=== PATIENT | male | born 1930 | race Caucasian/White ===

== ENCOUNTER → 2017-01-04 | Outpatient (CLI) | payer MEDICARE, OTHER ==
[~2017-01-04] VITALS: Ht 165.1 cm; Wt 86.0 kg
[~2017-01-04] MED LIST: ALLO100T30 PO; AMLO5TAB2 PO; ASPI-496 PO; CHOL2000 PO; EZET10TA3 PO; FENTANYL PF 100 MCG/2ML ONE; FLUMAZENIL 0.1 MG/1 ML, 5ML ONE; FURO40TA6 PO; LABE200T3 PO; MIDAZOLAM 1 MG/ML, 5ML ONE; NALOXONE 1 MG/ML, 2ML ONE; PRED-402 PO; ROSU20TA PO; SODIUM CHLORIDE 0.9% 1,000 ML IV SCH; TERA5CAP3 PO
[2017-01-04 06:58] VITALS: BP 151/67
== END | disposition home or self-care (01) ==
LOC: OUT 06:10 → EDSTATUS 07:30
PROVIDERS: ATTEND Surgery
DX: Z01.812 Encounter for preprocedural laboratory examination (principal); N17.9 Acute kidney failure, unspecified; R80.3 Bence Jones proteinuria; M10.9 Gout, unspecified; I12.9 Hypertensive chronic kidney disease with stage 1 through stage 4 chronic kidney disease, or unspecified chronic kidney disease; E78.5 Hyperlipidemia, unspecified; N18.3 Chronic kidney disease, stage 3 (moderate)
CPT/HCPCS: 36415; 85610; J2250; J3010; J2310; J7030

== ENCOUNTER → 2017-01-19 | Outpatient (CLI) | payer MEDICARE, OTHER ==
[~2017-01-19] MED LIST changes: +AMOX1TAB12 PO; -FENTANYL PF 100 MCG/2ML ONE; -FLUMAZENIL 0.1 MG/1 ML, 5ML ONE; +FURO-92 PO; +GUAI5SYR PO; -MIDAZOLAM 1 MG/ML, 5ML ONE; -NALOXONE 1 MG/ML, 2ML ONE; +PRED20TA PO; -SODIUM CHLORIDE 0.9% 1,000 ML IV SCH; +TAMS-11 PO
== END | disposition home or self-care (01) ==
LOC: CFH 10:32
PROVIDERS: ATTEND Surgery
DX: D35.01 Benign neoplasm of right adrenal gland (principal); J84.10 Pulmonary fibrosis, unspecified; N28.89 Other specified disorders of kidney and ureter
CPT/HCPCS: 74150

== ENCOUNTER 2017-02-02 10:35 | Inpatient (IN) | payer MEDICARE, OTHER ==
[~2017-02-02] VITALS: Ht 165.1 cm; Wt 72.3 kg
[2017-02-02] MEDS ORDERED: SODIUM CHLORIDE 0.9% 1,000ML IVBOLUS ONE (11:30)
[2017-02-02] MEDS ORDERED: ACETAMINOPHEN 500 MG TABLET ONE (11:53)
[2017-02-02 12:00] LABS: HEMOGLOBIN 10.9 g/dL (13.7-18.0)
[2017-02-02] MEDS ORDERED: ACETAMINOPHEN 500 MG TABLET PO ONE (12:00)
[2017-02-02] MEDS ORDERED: PIPERACILLIN/TAZO/PMX 3.375GM 50 ML ONE (12:07)
[2017-02-02 12:12] LABS: ASPARTATE AMINO TRANSFERASE 41 U/L (15-37); BLOOD UREA NITROGEN 58 mg/dL (7-18)
[2017-02-02] MEDS ORDERED: PIPERACILLIN/TAZO/PMX 3.375GM 50 ML IV ONE (12:30)
[2017-02-02] MEDS ORDERED: PIPERACILLIN/TAZO/PMX 3.375GM 50 ML IV SCH (14:00)
[2017-02-02] MEDS ORDERED: POLYETHYLENE GLYCOL 17 GM PACKET PO PRN (14:30)
[2017-02-02] MEDS ORDERED: DOCUSATE 100 MG CAPSULE PO PRN (14:30)
[2017-02-02] MEDS ORDERED: ONDANSETRON ODT 4 MG PO PRN (14:30)
[2017-02-02] MEDS ORDERED: GUAIFENESIN/DM 200-20MG, 10ML UDC PO PRN (14:30)
[2017-02-02] MEDS ORDERED: BISACODYL 10 MG SUPP PR PRN (14:30)
[2017-02-02] MEDS ORDERED: PHARMACY MAY ADJ FOR RENAL FX MC PRN (14:30)
[2017-02-02] MEDS ORDERED: ONDANSETRON 2MG/ML, 2ML IVP PRN (14:30)
[2017-02-02] MEDS ORDERED: GUAIFENESIN/DM 100-10MG, 5ML UDC PO PRN (14:30)
[2017-02-02] MEDS ORDERED: ACETAMINOPHEN 325 MG TABLET PO PRN (14:30)
[2017-02-02] MEDS ORDERED: ALBUTEROL/IPRATROPIUM 2.5MG/0.5MG, 3 ML ONE (15:37)
[2017-02-02] MEDS: ALBUTEROL/IPRATROPIUM 2.5MG/0.5MG, 3 ML NPPB SCH ×2 (15:44→20:50)
[2017-02-02] MEDS: HEPARIN 5,000 UNITS/ML, 1ML SQ SCH (17:20)
[2017-02-02] MEDS: ATORVASTATIN 40 MG TABLET PO SCH (20:02)
[2017-02-02] MEDS: PIPERACILLIN/TAZO/PMX 2.25GM 50 ML IV SCH (20:02)
[2017-02-02] MEDS: LABETALOL 200 MG TABLET PO SCH (20:03)
[2017-02-02 20:13] VITALS: BP 150/70
[2017-02-03 01:26] VITALS: BP 121/68
[2017-02-03] MEDS: PIPERACILLIN/TAZO/PMX 2.25GM 50 ML IV SCH ×4 (01:59→21:41)
[2017-02-03] MEDS: HEPARIN 5,000 UNITS/ML, 1ML SQ SCH ×3 (01:59→17:54)
[2017-02-03] MEDS ORDERED: DIPHENHYDRAMINE 25 MG CAPSULE PO ONE (02:00)
[2017-02-03 05:46] LABS: HEMOGLOBIN 10.8 g/dL (13.7-18.0)
[2017-02-03 06:06] LABS: BLOOD UREA NITROGEN 59 mg/dL (7-18)
[2017-02-03 06:38] LABS: DIFF TOTAL CELLS COUNTED 100 CELL DIFF
[2017-02-03] MEDS: ALBUTEROL/IPRATROPIUM 2.5MG/0.5MG, 3 ML NPPB SCH ×4 (06:49→22:00)
[2017-02-03 07:05] LABS: VERIFY COUNTS? YES
[2017-02-03 07:59] VITALS: BP 107/58
[2017-02-03] MEDS: LABETALOL 200 MG TABLET PO SCH ×2 (09:00→21:42)
[2017-02-03] MEDS: ASPIRIN 81 MG TABLET EC PO SCH (10:05)
[2017-02-03] MEDS: EZETIMIBE 10 MG TABLET PO SCH (10:06)
[2017-02-03] MEDS: ALLOPURINOL 100 MG TABLET PO SCH (10:06)
[2017-02-03] MEDS: CHOLECALCIFEROL 1,000 UNIT TABLET PO SCH (10:06)
[2017-02-03 13:47] VITALS: BP 154/64
[2017-02-03] MEDS: LACTOBACILLUS CHEW TABLET PO SCH ×2 (17:54→21:42)
[2017-02-03 19:24] VITALS: BP 148/66
[2017-02-03] MEDS: ATORVASTATIN 40 MG TABLET PO SCH (21:42)
[2017-02-04] MEDS: HEPARIN 5,000 UNITS/ML, 1ML SQ SCH ×2 (01:30→09:30)
[2017-02-04 02:05] VITALS: BP 134/67
[2017-02-04] MEDS: PIPERACILLIN/TAZO/PMX 2.25GM 50 ML IV SCH ×2 (02:23→10:05)
[2017-02-04] MEDS: ALBUTEROL/IPRATROPIUM 2.5MG/0.5MG, 3 ML NPPB SCH ×4 (02:26→14:53)
[2017-02-04] MEDS ORDERED: FUROSEMIDE 40 MG/4 ML IV ONE (03:30)
[2017-02-04 05:12] LABS: HEMOGLOBIN 10.9 g/dL (13.7-18.0)
[2017-02-04 05:45] LABS: BLOOD UREA NITROGEN 60 mg/dL (7-18); TOTAL IRON BINDING CAPACITY 251 mcg/dL (250-450)
[2017-02-04] MEDS: LACTOBACILLUS CHEW TABLET PO SCH ×2 (06:00→11:00)
[2017-02-04 07:02] VITALS: BP 139/66
[2017-02-04] MEDS ORDERED: FUROSEMIDE 40 MG TABLET PO ONE (08:00)
[2017-02-04] MEDS: CHOLECALCIFEROL 1,000 UNIT TABLET PO SCH (09:00)
[2017-02-04] MEDS: ASPIRIN 81 MG TABLET EC PO SCH (09:00)
[2017-02-04] MEDS: LABETALOL 200 MG TABLET PO SCH (09:00)
[2017-02-04] MEDS: EZETIMIBE 10 MG TABLET PO SCH (09:00)
[2017-02-04] MEDS ORDERED: FUROSEMIDE 40 MG TABLET PO SCH (09:00)
[2017-02-04] MEDS: ALLOPURINOL 100 MG TABLET PO SCH (09:00)
[2017-02-04] MEDS ORDERED: TAMSULOSIN 0.4 MG CAP.ER.24H PO SCH (09:00)
== END 2017-02-04 15:36 | disposition hospice, home (50) | DRG 193 ==
LOC: ED 11:39 → EDIP 12:48 → 3NE 15:55
PROVIDERS: ADMIT Internal Medicine; ATTEND Internal Medicine
PROC: 0T9B70Z Drainage of Bladder with Drainage Device, Via Natural or Artificial Opening (ICD-10-PCS; principal; 2017-02-02)
DX: J15.9 Unspecified bacterial pneumonia (principal); J96.01 Acute respiratory failure with hypoxia; E43 Unspecified severe protein-calorie malnutrition; I50.33 Acute on chronic diastolic (congestive) heart failure; E87.1 Hypo-osmolality and hyponatremia; N18.4 Chronic kidney disease, stage 4 (severe); N04.8 Nephrotic syndrome with other morphologic changes; E27.40 Unspecified adrenocortical insufficiency; I13.0 Hypertensive heart and chronic kidney disease with heart failure and stage 1 through stage 4 chronic kidney disease, or unspecified chronic kidney disease; C64.9 Malignant neoplasm of unspecified kidney, except renal pelvis; I73.9 Peripheral vascular disease, unspecified; D63.8 Anemia in other chronic diseases classified elsewhere; E55.9 Vitamin D deficiency, unspecified; E78.5 Hyperlipidemia, unspecified; G51.0 Bell's palsy; M10.9 Gout, unspecified; R13.10 Dysphagia, unspecified; R62.7 Adult failure to thrive; Z51.5 Encounter for palliative care; W19.XXXA Unspecified fall, initial encounter; Y92.009 Unspecified place in unspecified non-institutional (private) residence as the place of occurrence of the external cause; Z82.49 Family history of ischemic heart disease and other diseases of the circulatory system; Z87.891 Personal history of nicotine dependence; Z68.26 Body mass index [BMI] 26.0-26.9, adult
CPT/HCPCS: 36415; 71010; 80048; 80053; 80069; 81001; 82728; 83036; 83540; 83550; 83605; 85025; 87040; 87324; 93005; 94640; 96365; J1644; J1940; J2543; J7620; J7030; J7512; Q0163